=== PATIENT | female | born 1995 | race Caucasian/White ===

== ENCOUNTER → 2020-05-09 15:36 | Outpatient (BNVA) | payer SELFPAY | PROVIDERS: PCP Nurse Practitioner Family; Visit Provider Nurse Practitioner Family | DX: J06.9 Acute upper respiratory infection, unspecified (principal); H66.001 Acute suppurative otitis media without spontaneous rupture of ear drum, right ear; Z20.828 Contact with and (suspected) exposure to other viral communicable diseases | CPT/HCPCS: 87400; 87635 ==

== ENCOUNTER → 2020-12-28 16:21 | Outpatient (BNVA) | payer SELFPAY | PROVIDERS: PCP Nurse Practitioner Family; Visit Provider Nurse Practitioner Family | DX: R53.83 Other fatigue (principal); R52 Pain, unspecified; Z13.6 Encounter for screening for cardiovascular disorders; R73.9 Hyperglycemia, unspecified | CPT/HCPCS: 81000 ==

== ENCOUNTER → 2021-01-02 08:37 | Outpatient (BNVA) | payer SELFPAY | PROVIDERS: PCP Nurse Practitioner Family; Visit Provider Nurse Practitioner Family | DX: R53.83 Other fatigue (principal); R73.9 Hyperglycemia, unspecified; Z13.6 Encounter for screening for cardiovascular disorders | CPT/HCPCS: 80053; 80061; 82306; 82607; 83036; 84439; 84443; 85025 ==

== ENCOUNTER 2021-01-10 09:29 | Outpatient (CLI) | payer SELFPAY ==
--- NOTE | 2021-01-10 11:00 | CT_ITS ---
WS: [id number] CT ABDOMEN PELVIS TECHNIQUE: Contrast-enhanced CT of the abdomen and pelvis with coronal and sagittal reformatted image s. CLINICAL INFORMATION: R10.31 - Right lower quadrant pain COMPARISON: CT 5 13,017 DLP: 1084.[address] scans at [facility] use at least one of these dose optimization techniques: automated e xposure control; mA and/or kV adjustment per patient size (includes targeted exams where dose is matc hed to clinical indication); or iterative reconstruction. FINDINGS: Lung bases are well aerated. Tiny subpleural pulmonary nodule left lower lobe measuring 3 mm unchange d. Diffuse fatty infiltration of the liver. Normal portal vein and splenic vein. Cholecystectomy clip s. Normal spleen. Normal GE junction. Normal pancreatic parenchymal enhancement. Adrenal glands are n ormal. Normal renal parenchymal enhancement. No hydronephrosis. Normal caliber abdominal aorta. No ab dominal or pelvic lymphadenopathy. Uterus has changed positions compared to previous. Today uterus is anteverted and previously was retr oflexed. Urine distended bladder. No free fluid in the pelvis. No pelvic or inguinal lymphadenopathy. Normal appendix in the right lower quadrant. Appendix is air distended. Normal lumbar spine. CT/CT abdomen pelvis w con* [id number] IMPRESSION: 1. Mild diffuse fatty infiltration of the liver. 2. Prior cholecystectomy. 3. No hydronephrosis. Normal renal parenchymal enhancement. 4. Normal appendix in the right lower quadrant which is air filled. 5. Change in configuration of the uterus which is anteverted today. Previously uterus was retroflexed. 6. Stable 3 mm subpleural nodule left lower lobe. 7. No other significant findings.
[2021-01-10] MEDS: iohexol 300 mg/mL 100 mL Btl IV (11:36)
[2021-01-10] MEDS: iohexol 300 mg/mL 50 mL Btl PO (11:36)
== END 2021-01-10 09:30 | disposition home or self-care (01) ==
PROVIDERS: PCP Nurse Practitioner Family; Visit Provider Nurse Practitioner Family
DX: R10.31 Right lower quadrant pain (principal); K76.0 Fatty (change of) liver, not elsewhere classified; Z90.49 Acquired absence of other specified parts of digestive tract; R91.1 Solitary pulmonary nodule
CPT/HCPCS: 74177; Q9967